=== PATIENT | male | born 1930 | race African-American/Black ===

== ENCOUNTER 2016-12-08 11:53 | Inpatient (IN) | payer MEDICARE, BC, MEDICAID ==
[~2016-12-08] VITALS: Ht 165.1 cm; Wt 78.0 kg
[2016-12-08] MEDS ORDERED: LEVO500T89 PO (12:22)
[2016-12-08] MEDS ORDERED: ALLO100T PO (12:22)
[2016-12-08] MEDS ORDERED: MEMA5 PO (12:22)
[2016-12-08] MEDS ORDERED: TAMS0.4C32 PO (12:22)
[2016-12-08] MEDS ORDERED: ACET-784 PO (12:22)
[2016-12-08] MEDS ORDERED: DOCU250C21 PO (12:22)
[2016-12-08] MEDS ORDERED: CHOL200018 PO (12:22)
[2016-12-08] MEDS ORDERED: CLOP75TA32 PO (12:22)
[2016-12-08] MEDS ORDERED: METO100T5 PO (12:22)
[2016-12-08] MEDS ORDERED: ASPI-556 PO (12:22)
[2016-12-08] MEDS ORDERED: FERR325C PO (12:22)
[2016-12-08] MEDS ORDERED: ATOR20TA65 PO (12:22)
[2016-12-08 12:28] LABS: GLUCOSE,POINT OF CARE 133 MG/DL (70-110)
[2016-12-08] MEDS ORDERED: SODIUM CHLORIDE 0.9% 1,000 ML IV ONE (12:30)
[2016-12-08] MEDS ORDERED: ACETAMINOPHEN 650 MG/ISO-OSM 65 ML IV ONE (12:30)
[2016-12-08 12:51] LABS: EOSINOPHILS # (AUTO) 0.02 K/uL (0.00-0.70); EOSINOPHILS % (AUTO) 0.11 % (1.0-6.0); HEMATOCRIT 34.5 % (41-53); HEMOGLOBIN 10.9 g/dL (13.5-17.5); LYMPHOCYTES # (AUTO) 0.4 K/uL (1.0-4.8); LYMPHOCYTES % (AUTO) 2.7 % (22.0-44.0); MEAN CORPUSCULAR HEMOGLOBIN 21.7 pg (26.0-34.0); MEAN CORPUSCULAR HGB CONC 31.5 G/dL (31.0-37.0); MEAN CORPUSCULAR VOLUME 69 fL (80-100); MONOCYTES # (AUTO) 1.2 K/uL (0.1-1.0); NEUTROPHILS % (AUTO) 89.2 % (40.0-70.0); PLATELET COUNT (AUTO) 202 K/uL (150-450); RED CELL DISTRIBUTION WIDTH 15.4 % (11.5-14.5); WHITE BLOOD COUNT (AUTO) 14.5 K/uL (4.5-11.0)
[2016-12-08 13:05] LABS: TROPONIN I 0.16 ng/mL (0.00-0.05)
[2016-12-08 13:07] LABS: ANION GAP 12 mmol/L (8-16); CALCIUM, TOTAL 8.8 mg/dL (8.8-10.5); CARBON DIOXIDE 26 mmol/L (22-29); CHLORIDE 105 mmol/L (98-107); CREATININE 4.75 mg/dL (0.60-1.30); GLOMERULAR FILTR. RATE CALC 14 mL/min (>60); POTASSIUM 4.3 mmol/L (3.5-5.1); SODIUM SERUM 143 mmol/L (136-145); UREA NITROGEN, BLOOD 77 mg/dL (7-18)
[2016-12-08 13:09] LABS: ALANINE AMINOTRANSFERASE 37 U/L (12-78); ASPARTATE AMINOTRANSFERASE 60 U/L (15-37); BILIRUBIN,TOTAL 0.6 mg/dL (0.1-1.0); CREATINE KINASE, TOTAL 55 U/L (39-308); TOTAL PROTEIN, SERUM 7.4 g/dL (6.4-8.2)
[2016-12-08 13:10] LABS: INR 1.1 (0.9-1.1); PROTHROMBIN TIME 11.6 SEC (9.4-11.6)
[2016-12-08 13:11] LABS: LACTIC ACID 1.6 mmol/L (0.4-2.0)
[2016-12-08 14:20] LABS: INFLUENZA TYPE B NEGATIVE FOR TYPE B (NEGATIVE)
[2016-12-08 14:29] LABS: ADD UA MICROSCOPIC YES; APPEARANCE,URINE TURBID (CLEAR); GLUCOSE, URINE (UA) NEGATIVE (NEGATIVE); KETONES,URINE NEGATIVE (NEGATIVE); LEUKOCYTE ESTERASE ,URINE LARGE (NEGATIVE); OCCULT BLOOD,URINE LARGE (NEGATIVE); PH,URINE 6.5 (5.0-8.0); PROTEIN,URINE SEE CONFIRM (NEGATIVE)
[2016-12-08 14:31] LABS: SULFOSALICYLIC ACID,URINE 3+ (Negative)
[2016-12-08 14:33] LABS: RBC,URINE 26-50 /HPF (0-2); SQUAMOUS EPITHELIAL CELL,UR Few /LPF (None Seen); WBC,URINE 51-100 /HPF (0-5)
[2016-12-08] MEDS ORDERED: PIPERACILLIN/TAZO 3.375 GM/D5W 50 ML IV ONE (14:45)
[2016-12-08] MEDS ORDERED: SODIUM CHLORIDE 0.9% 500 ML IV ONE ×2 (15:57→16:30)
[2016-12-08] MEDS ORDERED: METOPROLOL TARTRATE 50 MG TABLET PO ONE (16:15)
[2016-12-08] MEDS ORDERED: DILTIAZEM HCL 5 MG/ML 5 ML VIAL IVP ONE ×2 (17:15→18:15)
[2016-12-08] MEDS ORDERED: ONDANSETRON HCL 4 MG/2 ML VIAL IVP PRN (17:45)
[2016-12-08] MEDS ORDERED: ACETAMINOPHEN 325 MG TABLET PO PRN (17:45)
[2016-12-08] MEDS ORDERED: ACETAMINOPHEN 650 MG RECTAL SUPPOSITORY PR ONE (18:45)
[2016-12-08] MEDS ORDERED: SODIUM CHLORIDE 0.9% 2,000 ML IV ONE (18:45)
[2016-12-08 21:04] VITALS: BP 116/67
[2016-12-09] VITALS (7 sets, daily range): BP systolic 114–161; BP diastolic 69–103
[2016-12-09 06:43] LABS: HEMATOCRIT 32.7 % (41-53); MEAN CORPUSCULAR HEMOGLOBIN 21.3 pg (26.0-34.0); MEAN CORPUSCULAR HGB CONC 30.7 G/dL (31.0-37.0); MEAN CORPUSCULAR VOLUME 69 fL (80-100); PLATELET COUNT (AUTO) 148 K/uL (150-450); RED BLOOD CELL COUNT(AUTO) 4.72 MIL/uL (4.50-5.90); RED CELL DISTRIBUTION WIDTH 15.6 % (11.5-14.5); WHITE BLOOD COUNT (AUTO) 15.1 K/uL (4.5-11.0)
[2016-12-09 07:58] LABS: BAND NEUTROPHILS % (MANUAL) 4 % (1-5); LYMPHOCYTES % (MANUAL) 3 % (22-44); REACTIVE LYMPHOCYTES 2 % (0-0); TOTAL CELLS COUNTED 100
[2016-12-09 09:40] LABS: ALBUMIN 1.7 g/dL (3.4-5.0); BILIRUBIN,TOTAL 0.5 mg/dL (0.1-1.0); CALCIUM, TOTAL 8.4 mg/dL (8.8-10.5); CREATININE 5.09 mg/dL (0.60-1.30); TOTAL PROTEIN, SERUM 6.6 g/dL (6.4-8.2)
[2016-12-09] MEDS ORDERED: DOCUSATE SODIUM 250 MG CAPSULE PO PRN (10:00)
[2016-12-09] MEDS ORDERED: ACETAMINOPHEN 325 MG TABLET PO PRN (10:00)
[2016-12-09] MEDS ORDERED: CHOLECALCIFEROL (VIT D3) 2,000 UNITS TABLET PO SCH (11:00)
[2016-12-09 12:02] LABS: MAGNESIUM 1.9 mg/dL (1.80-2.40); PHOSPHORUS 4.6 mg/dL (2.5-4.9)
[2016-12-09] MEDS: CHOLECALCIFEROL (VIT D3) 1,000 UNITS TABLET PO SCH (12:04)
[2016-12-09] MEDS: TAMSULOSIN HCL 0.4 MG CAPSULE PO SCH (12:04)
[2016-12-09] MEDS: FERROUS SULFATE 325 MG EC TABLET PO SCH (12:04)
[2016-12-09] MEDS: CLOPIDOGREL BISULFATE 75 MG TABLET PO SCH (12:05)
[2016-12-09] MEDS: ATORVASTATIN CALCIUM 20 MG TABLET PO SCH (12:05)
[2016-12-09] MEDS: MEMANTINE HCL 5 MG TABLET PO SCH ×2 (12:06→20:08)
[2016-12-09] MEDS: ALLOPURINOL 300 MG TABLET PO SCH (12:06)
[2016-12-09] MEDS: ASPIRIN 81 MG EC TABLET PO SCH (12:07)
[2016-12-09] MEDS: PIPERACILLIN SODIUM/TAZOBACTAM 2.25 GM in DEXTROSE 5%-WATER 50 ML IV SCH ×2 (14:17→20:11)
[2016-12-09] MEDS: METOPROLOL TARTRATE 50 MG TABLET PO SCH ×2 (16:30→20:08)
[2016-12-09] MEDS: HEPARIN SODIUM,PORCINE 5,000 UNITS/ML VIAL SQ SCH (21:52)
[2016-12-10 04:58] VITALS: BP 135/78
[2016-12-10] MEDS: PIPERACILLIN SODIUM/TAZOBACTAM 2.25 GM in DEXTROSE 5%-WATER 50 ML IV SCH ×3 (04:59→20:13)
[2016-12-10 06:41] LABS: HEMATOCRIT 30.8 % (41-53); HEMOGLOBIN 9.5 g/dL (13.5-17.5); MEAN CORPUSCULAR HEMOGLOBIN 21.2 pg (26.0-34.0); MEAN CORPUSCULAR HGB CONC 30.7 G/dL (31.0-37.0); MEAN CORPUSCULAR VOLUME 69 fL (80-100); PLATELET COUNT (AUTO) 158 K/uL (150-450); RED BLOOD CELL COUNT(AUTO) 4.46 MIL/uL (4.50-5.90); RED CELL DISTRIBUTION WIDTH 15.6 % (11.5-14.5); WHITE BLOOD COUNT (AUTO) 12.8 K/uL (4.5-11.0)
[2016-12-10 07:04] LABS: ALBUMIN 1.5 g/dL (3.4-5.0); BILIRUBIN,TOTAL 0.6 mg/dL (0.1-1.0); CALCIUM, TOTAL 8.3 mg/dL (8.8-10.5); CREATININE 4.82 mg/dL (0.60-1.30); TOTAL PROTEIN, SERUM 6.5 g/dL (6.4-8.2)
[2016-12-10 07:25] VITALS: BP 130/70
[2016-12-10 08:45] LABS: BAND NEUTROPHILS % (MANUAL) 3 % (1-5); LYMPHOCYTES % (MANUAL) 5 % (22-44); TOTAL CELLS COUNTED 100
[2016-12-10 08:46] LABS: RBC MORPHOLOGY COMMENT ABNORMAL R
[2016-12-10] MEDS: CHOLECALCIFEROL (VIT D3) 1,000 UNITS TABLET PO SCH (08:46)
[2016-12-10] MEDS: ATORVASTATIN CALCIUM 20 MG TABLET PO SCH (08:46)
[2016-12-10] MEDS: ASPIRIN 81 MG EC TABLET PO SCH (08:46)
[2016-12-10] MEDS: PANTOPRAZOLE SODIUM 40 MG DR TABLET PO SCH (08:47)
[2016-12-10] MEDS: METOPROLOL TARTRATE 50 MG TABLET PO SCH ×3 (08:47→20:11)
[2016-12-10] MEDS: CLOPIDOGREL BISULFATE 75 MG TABLET PO SCH (08:48)
[2016-12-10] MEDS: MEMANTINE HCL 5 MG TABLET PO SCH ×2 (08:48→20:11)
[2016-12-10] MEDS: ALLOPURINOL 300 MG TABLET PO SCH (08:48)
[2016-12-10] MEDS: HEPARIN SODIUM,PORCINE 5,000 UNITS/ML VIAL SQ SCH ×2 (08:51→20:11)
[2016-12-10] MEDS: TAMSULOSIN HCL 0.4 MG CAPSULE PO SCH (08:53)
[2016-12-10] MEDS: DEXTROSE 5%-0.45% SODIUM CHL 1,000 ML IV SCH ×2 (09:57→23:55)
[2016-12-10 10:55] LABS: APPEARANCE,URINE CLOUDY (CLEAR); GLUCOSE, URINE (UA) NEGATIVE (NEGATIVE); KETONES,URINE NEGATIVE (NEGATIVE); LEUKOCYTE ESTERASE ,URINE LARGE (NEGATIVE); OCCULT BLOOD,URINE LARGE (NEGATIVE); PROTEIN,URINE SEE CONFIRM (NEGATIVE)
[2016-12-10 11:12] VITALS: BP 139/79
[2016-12-10 11:45] LABS: SULFOSALICYLIC ACID,URINE 2+ (Negative)
[2016-12-10 11:46] LABS: WBC,URINE 26-50 /HPF (0-5)
[2016-12-10 11:47] LABS: SQUAMOUS EPITHELIAL CELL,UR Few /LPF (None Seen)
[2016-12-10 16:11] VITALS: BP 128/69
[2016-12-10 19:30] VITALS: BP 129/67
[2016-12-10 23:19] VITALS: BP 121/69
[2016-12-11 04:48] VITALS: BP 135/68
[2016-12-11] MEDS: PIPERACILLIN SODIUM/TAZOBACTAM 2.25 GM in DEXTROSE 5%-WATER 50 ML IV SCH ×2 (04:54→12:12)
[2016-12-11 07:46] VITALS: BP 143/65
[2016-12-11 08:06] LABS: CALCIUM, TOTAL 8.3 mg/dL (8.8-10.5); CREATININE 4.6 mg/dL (0.60-1.30); MAGNESIUM 2.1 mg/dL (1.80-2.40); PHOSPHORUS 4.1 mg/dL (2.5-4.9)
[2016-12-11] MEDS: ASPIRIN 81 MG EC TABLET PO SCH (09:21)
[2016-12-11] MEDS: PANTOPRAZOLE SODIUM 40 MG DR TABLET PO SCH (09:22)
[2016-12-11] MEDS: CLOPIDOGREL BISULFATE 75 MG TABLET PO SCH (09:22)
[2016-12-11] MEDS: FERROUS SULFATE 325 MG EC TABLET PO SCH (09:22)
[2016-12-11] MEDS: MEMANTINE HCL 5 MG TABLET PO SCH ×2 (09:22→21:24)
[2016-12-11] MEDS: METOPROLOL TARTRATE 50 MG TABLET PO SCH ×3 (09:22→21:23)
[2016-12-11] MEDS: TAMSULOSIN HCL 0.4 MG CAPSULE PO SCH (09:22)
[2016-12-11] MEDS: ATORVASTATIN CALCIUM 20 MG TABLET PO SCH (09:22)
[2016-12-11] MEDS: ALLOPURINOL 300 MG TABLET PO SCH (09:23)
[2016-12-11] MEDS: HEPARIN SODIUM,PORCINE 5,000 UNITS/ML VIAL SQ SCH ×2 (09:23→21:24)
[2016-12-11] MEDS: CHOLECALCIFEROL (VIT D3) 1,000 UNITS TABLET PO SCH (09:23)
[2016-12-11] MEDS: DEXTROSE 5%-WATER 1,000 ML IV SCH (10:03)
[2016-12-11 10:59] LABS: PSA FREE 0.88 ng/mL
[2016-12-11 11:27] VITALS: BP 137/76
[2016-12-11] MEDS ORDERED: VITAD1000 PO (16:10)
[2016-12-11] MEDS ORDERED: ALLO300 PO (16:10)
[2016-12-11 16:15] VITALS: BP 148/67
[2016-12-11] MEDS ORDERED: VANCOMYCIN HCL 1 GM/D5% WATER 200 ML IV PRN (16:30)
[2016-12-11] MEDS ORDERED: VANCOMYCIN HCL 1.5 GM in DEXTROSE 5%-WATER 250 ML IV ONE (17:00)
[2016-12-11 19:25] VITALS: BP 138/69
[2016-12-12] VITALS (7 sets, daily range): BP systolic 134–152; BP diastolic 67–84
[2016-12-12] MEDS: DEXTROSE 5%-WATER 1,000 ML IV SCH ×2 (05:55→19:40)
[2016-12-12 08:16] LABS: CALCIUM, TOTAL 8.4 mg/dL (8.8-10.5); CREATININE 4.47 mg/dL (0.60-1.30); MAGNESIUM 1.9 mg/dL (1.80-2.40); PHOSPHORUS 3.7 mg/dL (2.5-4.9); POTASSIUM 3.9 mmol/L (3.5-5.1)
[2016-12-12] MEDS: ATORVASTATIN CALCIUM 20 MG TABLET PO SCH (08:54)
[2016-12-12] MEDS: ASPIRIN 81 MG EC TABLET PO SCH (08:54)
[2016-12-12] MEDS: TAMSULOSIN HCL 0.4 MG CAPSULE PO SCH (08:54)
[2016-12-12] MEDS: PANTOPRAZOLE SODIUM 40 MG DR TABLET PO SCH (08:55)
[2016-12-12] MEDS: METOPROLOL TARTRATE 50 MG TABLET PO SCH ×3 (08:55→20:02)
[2016-12-12] MEDS: CHOLECALCIFEROL (VIT D3) 1,000 UNITS TABLET PO SCH (08:55)
[2016-12-12] MEDS: CLOPIDOGREL BISULFATE 75 MG TABLET PO SCH (08:55)
[2016-12-12] MEDS: HEPARIN SODIUM,PORCINE 5,000 UNITS/ML VIAL SQ SCH ×2 (08:55→20:02)
[2016-12-12] MEDS: MEMANTINE HCL 5 MG TABLET PO SCH ×2 (08:55→20:02)
[2016-12-12] MEDS: ALLOPURINOL 300 MG TABLET PO SCH (08:55)
[2016-12-12] MEDS ORDERED: CHOLECALCIFEROL (VIT D3) 1,000 UNITS TABLET PO SCH (12:45)
[2016-12-13 04:43] VITALS: BP 135/70
[2016-12-13 06:23] LABS: CALCIUM, TOTAL 8.2 mg/dL (8.8-10.5); CREATININE 4.19 mg/dL (0.60-1.30); MAGNESIUM 1.7 mg/dL (1.80-2.40); PHOSPHORUS 3.3 mg/dL (2.5-4.9); POTASSIUM 3.6 mmol/L (3.5-5.1)
[2016-12-13 07:38] VITALS: BP 152/73
[2016-12-13] MEDS: HEPARIN SODIUM,PORCINE 5,000 UNITS/ML VIAL SQ SCH ×2 (09:02→20:15)
[2016-12-13] MEDS: CLOPIDOGREL BISULFATE 75 MG TABLET PO SCH (09:03)
[2016-12-13] MEDS: ATORVASTATIN CALCIUM 20 MG TABLET PO SCH (09:03)
[2016-12-13] MEDS: PANTOPRAZOLE SODIUM 40 MG DR TABLET PO SCH (09:03)
[2016-12-13] MEDS: TAMSULOSIN HCL 0.4 MG CAPSULE PO SCH (09:03)
[2016-12-13] MEDS: ASPIRIN 81 MG EC TABLET PO SCH (09:03)
[2016-12-13] MEDS: CHOLECALCIFEROL (VIT D3) 1,000 UNITS TABLET PO SCH (09:03)
[2016-12-13] MEDS: FERROUS SULFATE 325 MG EC TABLET PO SCH (09:03)
[2016-12-13] MEDS: MEMANTINE HCL 5 MG TABLET PO SCH ×2 (09:03→20:15)
[2016-12-13] MEDS: METOPROLOL TARTRATE 50 MG TABLET PO SCH ×3 (09:03→20:15)
[2016-12-13] MEDS: ALLOPURINOL 300 MG TABLET PO SCH (09:03)
[2016-12-13] MEDS ORDERED: VANCOMYCIN HCL 1 GM/D5% WATER 200 ML IV ONE (10:00)
[2016-12-13] MEDS: DEXTROSE 5%-WATER 1,000 ML IV SCH (10:07)
[2016-12-13 11:25] VITALS: BP 130/77
[2016-12-13 15:24] VITALS: BP 152/78
[2016-12-13 19:17] VITALS: BP 136/74
[2016-12-13 23:40] VITALS: BP 138/89
[2016-12-14] VITALS (7 sets, daily range): BP systolic 126–155; BP diastolic 61–83
[2016-12-14] MEDS: DEXTROSE 5%-WATER 1,000 ML IV SCH ×2 (06:38→19:48)
[2016-12-14 07:27] LABS: CALCIUM, TOTAL 8.3 mg/dL (8.8-10.5); CREATININE 3.67 mg/dL (0.60-1.30); POTASSIUM 3.6 mmol/L (3.5-5.1)
[2016-12-14] MEDS: ATORVASTATIN CALCIUM 20 MG TABLET PO SCH (08:45)
[2016-12-14] MEDS: TAMSULOSIN HCL 0.4 MG CAPSULE PO SCH (08:45)
[2016-12-14] MEDS: HEPARIN SODIUM,PORCINE 5,000 UNITS/ML VIAL SQ SCH ×2 (08:45→20:11)
[2016-12-14] MEDS: PANTOPRAZOLE SODIUM 40 MG DR TABLET PO SCH (08:45)
[2016-12-14] MEDS: ALLOPURINOL 300 MG TABLET PO SCH (08:45)
[2016-12-14] MEDS: CLOPIDOGREL BISULFATE 75 MG TABLET PO SCH (08:45)
[2016-12-14] MEDS: CHOLECALCIFEROL (VIT D3) 1,000 UNITS TABLET PO SCH (08:46)
[2016-12-14] MEDS: MEMANTINE HCL 5 MG TABLET PO SCH ×2 (08:46→20:12)
[2016-12-14] MEDS: METOPROLOL TARTRATE 50 MG TABLET PO SCH ×3 (08:46→20:11)
[2016-12-14] MEDS: ASPIRIN 81 MG EC TABLET PO SCH (08:47)
[2016-12-14 10:26] LABS: GLUCOSE,POINT OF CARE 137 MG/DL (70-110)
[2016-12-14 10:27] LABS: GLUCOSE COMMENT 1 Received Meds; GLUCOSE,POINT OF CARE 150 MG/DL (70-110)
[2016-12-15 04:16] VITALS: BP 158/84
[2016-12-15 06:23] LABS: CALCIUM, TOTAL 8.3 mg/dL (8.8-10.5); CREATININE 3.53 mg/dL (0.60-1.30); POTASSIUM 3.3 mmol/L (3.5-5.1)
[2016-12-15] MEDS ORDERED: POTASSIUM CHLORIDE 10 MEQ ER TABLET PO ONE (08:00)
[2016-12-15 08:01] VITALS: BP 169/80
[2016-12-15] MEDS: CHOLECALCIFEROL (VIT D3) 1,000 UNITS TABLET PO SCH (09:12)
[2016-12-15] MEDS: HEPARIN SODIUM,PORCINE 5,000 UNITS/ML VIAL SQ SCH ×2 (09:12→20:33)
[2016-12-15] MEDS: ATORVASTATIN CALCIUM 20 MG TABLET PO SCH (09:13)
[2016-12-15] MEDS: ALLOPURINOL 300 MG TABLET PO SCH (09:13)
[2016-12-15] MEDS: CLOPIDOGREL BISULFATE 75 MG TABLET PO SCH (09:13)
[2016-12-15] MEDS: ASPIRIN 81 MG EC TABLET PO SCH (09:13)
[2016-12-15] MEDS: TAMSULOSIN HCL 0.4 MG CAPSULE PO SCH (09:13)
[2016-12-15] MEDS: METOPROLOL TARTRATE 50 MG TABLET PO SCH ×3 (09:13→20:34)
[2016-12-15] MEDS: FERROUS SULFATE 325 MG EC TABLET PO SCH (09:13)
[2016-12-15] MEDS: MEMANTINE HCL 5 MG TABLET PO SCH ×2 (09:13→20:34)
[2016-12-15] MEDS: PANTOPRAZOLE SODIUM 40 MG DR TABLET PO SCH (09:13)
[2016-12-15] MEDS ORDERED: VANCOMYCIN HCL 1 GM/D5% WATER 200 ML IV ONE (11:00)
[2016-12-15 11:15] VITALS: BP 175/82
[2016-12-15 15:43] VITALS: BP 160/76
[2016-12-15 20:15] VITALS: BP 134/78
[2016-12-15 23:31] VITALS: BP 146/72
[2016-12-16 05:08] VITALS: BP 132/74
[2016-12-16 06:13] LABS: CALCIUM, TOTAL 8.3 mg/dL (8.8-10.5); CREATININE 3.32 mg/dL (0.60-1.30); POTASSIUM 3.4 mmol/L (3.5-5.1)
[2016-12-16 07:31] VITALS: BP 152/80
[2016-12-16] MEDS ORDERED: POTASSIUM CHLORIDE 10 MEQ ER TABLET PO ONE (08:15)
[2016-12-16] MEDS: HEPARIN SODIUM,PORCINE 5,000 UNITS/ML VIAL SQ SCH ×2 (08:22→20:29)
[2016-12-16] MEDS: TAMSULOSIN HCL 0.4 MG CAPSULE PO SCH (08:23)
[2016-12-16] MEDS: ATORVASTATIN CALCIUM 20 MG TABLET PO SCH (08:23)
[2016-12-16] MEDS: ALLOPURINOL 300 MG TABLET PO SCH (08:23)
[2016-12-16] MEDS: PANTOPRAZOLE SODIUM 40 MG DR TABLET PO SCH (08:23)
[2016-12-16] MEDS: CLOPIDOGREL BISULFATE 75 MG TABLET PO SCH (08:23)
[2016-12-16] MEDS: CHOLECALCIFEROL (VIT D3) 1,000 UNITS TABLET PO SCH (08:23)
[2016-12-16] MEDS: METOPROLOL TARTRATE 50 MG TABLET PO SCH ×3 (08:23→20:29)
[2016-12-16] MEDS: ASPIRIN 81 MG EC TABLET PO SCH (08:23)
[2016-12-16] MEDS: MEMANTINE HCL 5 MG TABLET PO SCH ×2 (08:24→20:29)
[2016-12-16 11:32] VITALS: BP 155/85
[2016-12-16 15:37] VITALS: BP 149/68
[2016-12-17] VITALS (7 sets, daily range): BP systolic 124–164; BP diastolic 70–84
[2016-12-17 07:00] LABS: CALCIUM, TOTAL 8.3 mg/dL (8.8-10.5); CREATININE 3.22 mg/dL (0.60-1.30); MAGNESIUM 1.5 mg/dL (1.80-2.40); PHOSPHORUS 4.3 mg/dL (2.5-4.9); POTASSIUM 3.4 mmol/L (3.5-5.1)
[2016-12-17] MEDS ORDERED: POTASSIUM CHLORIDE 20 MEQ ER TABLET PO ONE (08:00)
[2016-12-17] MEDS ORDERED: MAGNESIUM SULFATE 2 GM in DEXTROSE 5%-WATER 50 ML IV ONE (08:00)
[2016-12-17] MEDS ORDERED: VANCOMYCIN HCL 750 MG in DEXTROSE 5%-WATER 150 ML IV SCH (08:00)
[2016-12-17] MEDS: ALLOPURINOL 300 MG TABLET PO SCH (09:04)
[2016-12-17] MEDS: TAMSULOSIN HCL 0.4 MG CAPSULE PO SCH (09:04)
[2016-12-17] MEDS: MEMANTINE HCL 5 MG TABLET PO SCH ×2 (09:05→20:27)
[2016-12-17] MEDS: CHOLECALCIFEROL (VIT D3) 1,000 UNITS TABLET PO SCH (09:05)
[2016-12-17] MEDS: FERROUS SULFATE 325 MG EC TABLET PO SCH (09:05)
[2016-12-17] MEDS: HEPARIN SODIUM,PORCINE 5,000 UNITS/ML VIAL SQ SCH ×2 (09:05→20:27)
[2016-12-17] MEDS: PANTOPRAZOLE SODIUM 40 MG DR TABLET PO SCH (09:05)
[2016-12-17] MEDS: METOPROLOL TARTRATE 50 MG TABLET PO SCH ×3 (09:05→20:27)
[2016-12-17] MEDS: CLOPIDOGREL BISULFATE 75 MG TABLET PO SCH (09:05)
[2016-12-17] MEDS: ATORVASTATIN CALCIUM 20 MG TABLET PO SCH (09:05)
[2016-12-17] MEDS: ASPIRIN 81 MG EC TABLET PO SCH (09:05)
[2016-12-18 05:00] VITALS: BP 155/87
[2016-12-18 06:53] LABS: CALCIUM, TOTAL 8.6 mg/dL (8.8-10.5); POTASSIUM 3.7 mmol/L (3.5-5.1)
[2016-12-18 08:00] VITALS: BP 132/79
[2016-12-18] MEDS: MEMANTINE HCL 5 MG TABLET PO SCH ×2 (11:06→20:19)
[2016-12-18] MEDS: ASPIRIN 81 MG EC TABLET PO SCH (11:06)
[2016-12-18] MEDS: CHOLECALCIFEROL (VIT D3) 1,000 UNITS TABLET PO SCH (11:07)
[2016-12-18] MEDS: HEPARIN SODIUM,PORCINE 5,000 UNITS/ML VIAL SQ SCH ×2 (11:08→20:19)
[2016-12-18] MEDS: FERROUS SULFATE 325 MG EC TABLET PO SCH (11:08)
[2016-12-18] MEDS: ALLOPURINOL 300 MG TABLET PO SCH (11:08)
[2016-12-18] MEDS: ATORVASTATIN CALCIUM 20 MG TABLET PO SCH (11:09)
[2016-12-18] MEDS: METOPROLOL TARTRATE 50 MG TABLET PO SCH ×3 (11:09→20:20)
[2016-12-18 12:00] VITALS: BP 169/70
[2016-12-18] MEDS: PANTOPRAZOLE SODIUM 40 MG DR TABLET PO SCH (15:11)
[2016-12-18] MEDS: TAMSULOSIN HCL 0.4 MG CAPSULE PO SCH (15:11)
[2016-12-18 16:00] VITALS: BP 160/70
[2016-12-18 20:03] VITALS: BP 168/73
[2016-12-18 23:30] VITALS: BP 155/80
[2016-12-19 03:30] VITALS: BP 148/74
[2016-12-19 07:25] VITALS: BP 177/83
[2016-12-19 07:48] LABS: CALCIUM, TOTAL 8.7 mg/dL (8.8-10.5); CREATININE 2.94 mg/dL (0.60-1.30); MAGNESIUM 1.7 mg/dL (1.80-2.40); PHOSPHORUS 4.2 mg/dL (2.5-4.9); POTASSIUM 3.7 mmol/L (3.5-5.1)
[2016-12-19] MEDS: ASPIRIN 81 MG EC TABLET PO SCH (08:02)
[2016-12-19] MEDS: METOPROLOL TARTRATE 50 MG TABLET PO SCH ×3 (08:02→21:00)
[2016-12-19] MEDS: PANTOPRAZOLE SODIUM 40 MG DR TABLET PO SCH (08:02)
[2016-12-19] MEDS: CHOLECALCIFEROL (VIT D3) 1,000 UNITS TABLET PO SCH (08:02)
[2016-12-19] MEDS: HEPARIN SODIUM,PORCINE 5,000 UNITS/ML VIAL SQ SCH ×2 (08:02→21:00)
[2016-12-19] MEDS: ALLOPURINOL 300 MG TABLET PO SCH (08:02)
[2016-12-19] MEDS: ATORVASTATIN CALCIUM 20 MG TABLET PO SCH (08:02)
[2016-12-19] MEDS: TAMSULOSIN HCL 0.4 MG CAPSULE PO SCH (08:03)
[2016-12-19] MEDS: MEMANTINE HCL 5 MG TABLET PO SCH ×2 (08:03→21:01)
[2016-12-19] MEDS ORDERED: VANCOMYCIN HCL 1 GM/D5% WATER 200 ML IV PRN (08:15)
[2016-12-19] MEDS ORDERED: MAGNESIUM SULFATE 1 GM in DEXTROSE 5%-WATER 50 ML IV ONE (08:45)
[2016-12-19 11:24] VITALS: BP 155/67
[2016-12-19 16:17] VITALS: BP 158/69
[2016-12-19 17:12] LABS: GLUCOSE,POINT OF CARE 157 MG/DL (70-110)
[2016-12-19 20:02] VITALS: BP 166/75
[2016-12-19] MEDS ORDERED: SULFAMETHOX/TRIMETH DS 800-160 MG/TABLET PO SCH (21:00)
[2016-12-20 00:30] VITALS: BP 140/69
[2016-12-20 03:30] VITALS: BP 145/74
[2016-12-20 06:52] LABS: CALCIUM, TOTAL 8.6 mg/dL (8.8-10.5); CREATININE 2.92 mg/dL (0.60-1.30); PHOSPHORUS 3.5 mg/dL (2.5-4.9); POTASSIUM 3.7 mmol/L (3.5-5.1)
== END 2016-12-20 06:15 | DRG 871 ==
LOC: EMS 11:58 → 5S 18:06 → 6N 12-14 15:30
PROVIDERS: ADMIT Internal Medicine; ATTEND Internal Medicine
DX: A41.2 Sepsis due to unspecified staphylococcus (principal); E43 Unspecified severe protein-calorie malnutrition; G93.41 Metabolic encephalopathy; N39.0 Urinary tract infection, site not specified; N17.9 Acute kidney failure, unspecified; E87.0 Hyperosmolality and hypernatremia; F02.81 Dementia in other diseases classified elsewhere, unspecified severity, with behavioral disturbance; I13.10 Hypertensive heart and chronic kidney disease without heart failure, with stage 1 through stage 4 chronic kidney disease, or unspecified chronic kidney disease; F03.90 Unspecified dementia, unspecified severity, without behavioral disturbance, psychotic disturbance, mood disturbance, and anxiety; N18.3 Chronic kidney disease, stage 3 (moderate); M10.9 Gout, unspecified; E78.2 Mixed hyperlipidemia; E55.9 Vitamin D deficiency, unspecified; E83.42 Hypomagnesemia; I11.9 Hypertensive heart disease without heart failure; E87.6 Hypokalemia; G30.9 Alzheimer's disease, unspecified; I48.0 Paroxysmal atrial fibrillation; N27.0 Small kidney, unilateral; N28.1 Cyst of kidney, acquired; R13.10 Dysphagia, unspecified; Z86.79 Personal history of other diseases of the circulatory system; Z87.891 Personal history of nicotine dependence; Z79.82 Long term (current) use of aspirin; Z79.01 Long term (current) use of anticoagulants
CPT/HCPCS: 51702; 70450; 76700; 76770; 82306; 82570; 82962; 83605; 83735; 83970; 84100; 84154; 84300; 84540; 85007; 87040; 87081; 87086; 87804; 92610; 93005; 93306; 96361; 96365; 96366; 96367; 96375; 99285; J0131; J1644; J2543; J3370; J3475; J3490; J7030; J7040; J7060